=== PATIENT | female | born 1960 | race Caucasian/White ===

== ENCOUNTER → 2019-11-22 | Outpatient (CLI) | payer OTHER | END | disposition home or self-care (01) | LOC: LAB 14:02 | PROVIDERS: ATTEND Otolaryngology | DX: Z11.59 Encounter for screening for other viral diseases (principal) | CPT/HCPCS: U0003-CS ==

== ENCOUNTER → 2019-11-28 | Day surgery (SDC) | payer OTHER ==
[~2019-11-28] VITALS: Ht 162.6 cm; Wt 71.7 kg
[~2019-11-28] MED LIST: ACET325T21 PO; AZEL137S3 NS; CLINDAMYCIN 900MG PREMIX 50 ML IV PRN; DESFLURANE 61 TO 120 MINUTES IH ONE; DEXAMETHASONE SOD PHOS 4 MG/ML VIAL ONE; EPINEPHrine VIAL 30 MG/30 ML VIAL ONE; FLUT9.9S NS; HYDROmorphone 2 MG/ML VIAL IV PRN; IV RINGERS,LACTATED 1000ML 1,000 ML IV SCH; LIDOCAINE 1%/EPI 1:100,000 20 ML VIAL. ONE; LIDOCAINE 2% PF 5 ML VIAL. ONE; MIDAZOLAM HCL/PF 2 MG/2 ML VIAL. ONE; MORPHINE SULFATE 2 MG/ML VIAL. IV PRN; MUPIROCIN 2 % NASAL OINTMENT 22GM TUBE. ONE; MYCO500T PO; ONDANSETRON PF 4 MG/2 ML VIAL. IV PRN; ONDANSETRON PF 4 MG/2 ML VIAL. ONE; OXYC5TAB88 PO; OXYMETAZOLINE 0.05% NASAL SPRAY 30ML BOTTLE. NS ONE; PHENYLEPHRINE 0.25% NASAL SPRAY 15ML BOTTLE. NS ONE; PHENYLEPHRINE in 0.9% NACL PF 1 MG/10 ML SYRINGE. IV ONE; PROCHLORPERAZINE 10 MG/2 ML VIAL. IV PRN; PROPOFOL 10 MG/ML (20ML) VIAL. IV ONE; ROCURONIUM 50 MG/5 ML VIAL. ONE; SULF1TAB24 PO; TRIAMCINOLONE ACETONIDE 40 MG/ML VIAL. MC ONE; VITA1TAB31 PO; ceFAZolin SODIUM IV Push 1 GM VIAL. IVP PRN; fentaNYL PF VIAL 100 MCG/2 ML VIAL IV PRN; fentaNYL PF VIAL 100 MCG/2 ML VIAL ONE; oxyCODONE IR 5 MG TABLET ONE; oxyCODONE IR 5 MG TABLET PO ONE
--- NOTE | 2019-11-28 18:15 | PDOC4 ---
IMMEDIATE POST OP NOTE Date: Nov 28, 2019 Pre-Op Diagnosis chronic pansinusitis, chronic rhinitis, deviated septum, chronic eustachian tube dysfunction Post-Op Diagnosis Same as above Procedure Performed bilateral FESS under Image Guided Navigation (left luis bullosa resection, bilateral total ethmoidectomy, bilateral sphenoidotomy, bilateral frontal sinusotomy, bilateral medial maxillary antrostomy), bilateral inferior turbinate reduction, denervation of bilateral nasal cavity with cryotherapy (Clarifix) and bilateral eustachian tube dilation Surgeon Dr. Hoda James Rib Builder none Anesthesiologist Dr. Bojorquez Anesthesia Type: General Blood Loss 200 mL Specimens Obtained bilateral sinus contents Findings 1. Septal deviation to left. 2. Bilateral inferior turbinate hypertrophy 3. Severe inflammation and polypoid inflammation within all sinuses. Chronic thickening osteitic changes within sinuses 4. Inflammation surrounding eustachian tube orifice. 4. Frontal sinuses patent but narrow at end of the case. Complications none Operative Note see dictation. HODA JAMES MD Nov 28, 2019 18:15
[2019-11-28 19:17] VITALS: BP 151/69
--- NOTE | 2019-11-29 05:40 | OP ---
DATE OF SURGERY: 11/28/2019 PREOPERATIVE DIAGNOSES: Chronic pansinusitis, recurrent acute pansinusitis, deviated septum, chronic eustachian tube dysfunction, chronic rhinitis, bilateral inferior turbinate hypertrophy. POSTOPERATIVE DIAGNOSES: Chronic pansinusitis, recurrent acute pansinusitis, deviated septum, chronic eustachian tube dysfunction, chronic rhinitis, bilateral inferior turbinate hypertrophy. PROCEDURE PERFORMED: Septoplasty, bilateral inferior turbinate reduction, denervation of bilateral nasal cavity using cryotherapy, bilateral eustachian tube dysfunction, bilateral functional endoscopic sinus surgery under image guidance navigation to include left luis bullosa resection, bilateral medial maxillary antrostomy, bilateral total ethmoidectomy, bilateral sphenoidotomy, and bilateral frontal sinusotomy. SURGEON: Hoda James MD ANESTHESIA: General endotracheal anesthesia. INDICATIONS FOR SURGERY: The patient is a 59-year-old female who presented to the ENT clinic with chronic sinusitis which has been ongoing for many years that has been refractory to multiple management. The patient has chronic ear pressure and chronic nasal obstruction as well as chronic rhinitis. This has all been refractory to medical management. The decision was made the patient to undergo the above procedure. The risks, benefits, and alternatives of surgery were thoroughly discussed with the patient and informed consent was obtained. SPECIMEN: Bilateral sinus contents. INTRAOPERATIVE FINDINGS: 1. Septal deflection to the left limiting access to the left middle meatus and causing 70% obstruction of the nasal airway. 2. Bilateral inferior turbinate hypertrophy. 3. Inflammation of the eustachian tube orifice bilaterally. 4. Chronic polypoid inflammation, mucosal inflammation throughout along the operated sinuses with mucoid discharge present within the anterior ethmoid sinuses bilaterally. 5. Chronic osteolytic changes with thick osteolytic bone changes throughout the operated sinuses significantly limiting ability to perform surgery. 6. Severely narrowed frontal outflow tracts that are patent, but still severely narrowed even at the end of the case. ESTIMATED BLOOD LOSS: 200 mL. DESCRIPTION OF PROCEDURE: The patient was brought back to room per anesthesia and intubated in standard fashion. The patient was then turned 90 degrees in the room. The [employer] image guidance system was set up and verified for accuracy. This was used throughout the case to ensure complete dissection and for the patient's safety. The patient's nasal vestibular hairs were trimmed. The anterior septum and anterior aspect of the inferior turbinate was injected with a submucosal injection of 1% lidocaine with 1:100,000 epinephrine. Afrin-soaked pledgets were inserted in the patient's bilateral nasal cavity. The patient was then prepped and draped in a standard fashion. The Afrin-soaked pledgets were removed and a 30-degree scope was used to visualize the patient's bilateral nasal cavity. The patient was found to have a significant substance abuse on the left, which was limiting access to the nasopharynx. Therefore, septoplasty was performed on the left side. Hemitransfixion incision was made and elevated the mucoperichondrial flap on the left, cartilaginous and bony septum and left nasal floor. ____ anterior to the septal deflection to the left, leaving a 1.5 cm caudal and dorsal strut intact and elevated the mucoperichondrial flap on the right cartilaginous and bony septum right nasal floor. A silver knife was then used to remove the deviated portions of cartilage and sharp scissors were used superiorly on the nasal septal bone and the osteotome was used along the nasal floor and the deviated portions of bony septum including a large spur to the left completely resected. After this was completed, the septum was found to be straight. Left-sided hemitransfixion incision was closed with interrupted sutures of 4-0 chromic and a quilting mattress suture of 4-0 plain gut was used to bring the 2 mucoperichondrial flaps back together at the midline. There was a tear posteriorly and the mucoperichondrial flap on the left side, but no changes were found on the right side and this was reapproximated using the quilting mattress suture. I then used the 30-degree scope to visualize the patient's nasopharynx. The patient was found to have significant inflammation of the eustachian tube orifice bilaterally. Using the Histogenics low profile eustachian tube, ____ eustachian tube configuration. I then gently inserted the probe into the left eustachian tube orifice without leading any trauma to the 2 cm alfonso. I then placed the balloon over the probe and insufflated the balloon for 12 atmospheres of pressure for 2 minutes. The balloon was then subsequently deflated and the probe and the balloon removed without obvious trauma to the eustachian tube orifice, which was now widely patent. An identical procedure was performed on the right side. I then injected the lateral nasal wall with the attachment of the middle turbinate, lateral nasal wall, both anteriorly and posteriorly on each side. A 30-degree scope was used to visualize the posterior nasal cavity. The ClariFix cryotherapy device was inserted into the left nasal cavity. This device was placed adjacent to the mucosa just anterior to the posterior attachment of the middle turbinate and lateral nasal wall where the sphenopalatine ganglion entered into the nasal cavity. The device was placed along the mucosa and the device was turned on and the area of mucosa was frozen using the cryotherapy device for 45 seconds. The device was then turned off and the area was thawed ____ as well as normal saline irrigation. Once the device was completely thawed and it was gently removed without any trauma to the overlying mucosa. The mucosa was obviously blanched and that the identical procedure was performed on the right side. My attention was taken to performing the functional endoscopic sinus surgery on the left side. The patient had a large luis bullosa on this side. I used a sickle knife to cut it through the anterior aspect of the luis bullosa. I then used turbinate scissors to excise the lateral wall of the luis bullosa. The luis bullosa was further trimmed using the microdebrider. Using a backbiter forceps, I resected the most inferior portion of the vertical process. The vertical and horizontal process of the uncinate were then medialized and completely resected. The natural ostium of the maxillary sinus was identified. This was widened both anteriorly and posteriorly until it was widely patent. I then performed an ethmoidectomy in standard fashion beginning in the medial inferior plane, I dissected through the anterior ethmoid bulla. It is to be noted the patient had significant osteolytic changes within the ethmoid sinuses, and both of the bone of this region were severely indurated and hard to dissect. I continued my dissection through the anterior ethmoids. I performed an ethmoidectomy. Using a 0-degree scope, I visualized the patient's left nasal cavity. I again performed an ethmoidectomy in a standard fashion beginning in the medial inferior plane. I dissected through the anterior ethmoid bulla. It is to be noted that the patient had significant osteitic changes and very indurated bone throughout the ethmoid, frontal, and sphenoid sinuses on this side which made the dissection very difficult. There was also mucoid and polypoid inflammation throughout these sinuses. I dissected through the anterior ethmoid bulla using sharp dissection traveling from an anterior to posterior direction. Posteriorly, I identified the face of the sphenoid sinus. I dissected through the posterior aspect of the middle turbinate and then under image guidance as this was the only way I could visualize the patient's natural ostium of the sphenoid sinus, I used the straight probe to identify the sphenoid outflow tract and gently inserted this into the probe. I then placed a Alma balloon dilation system into the sphenoid ostium and I insufflated this multiple times to 12 atmospheres of pressure for 5 seconds to widen the sphenoid ostia. Once the sphenoid ostium was widened appropriately, I again used the microdebrider followed by Kerrison forceps to widen the sphenoid ostia superiorly to the skull base, laterally to the lamina papyracea, and inferiorly to remove the significant mucosal inflammation within the sphenoid sinus and to widen the sphenoid sinus completely. I then used a 30-degree scope to visualize the patient's skull base. The patient had thick osteitic changes of the ethmoid air cells along the skull base. These were carefully excised traveling from a posterior to the anterior direction. Anteriorly, I identified the frontal sinus outflow tract. This was severely narrowed due to the suprabullar ethmoid air cells as well as due to the posterior wall of the agger nasi cell. The posterior wall of the Agger nasi cell is very thickened, osteitic, and difficult to resect. I again placed the Florian balloon dilation ____ frontal outflow tract and this was insufflated to 12 atmospheres of pressure for 5 seconds multiple times to widen the frontal sinus outflow tract as widely and as patent as possible. I used the instrumentation at hand as much as I could to remove the posterior wall of the Agger nasi cell and the suprabullar ethmoid air cells, but there were limitations due to how thick and osteitic the bony changes were. Once the frontal sinus outflow tract was as wide as possible, I thoroughly irrigated all of her sinuses. Topical epinephrine was placed for several minutes for hemostasis. The middle turbinate was bulgerized to the septum using a sickle knife. A Propel contour implant was placed within the narrowed frontal sinus outflow tract and a Propel standard implant was placed within the posterior ethmoid sinuses. My attention was then taken to the right nasal cavity. I then medialized the middle turbinate using a Ellsworth elevator. I identified the uncinate process. Using a backbiter forceps, I resected the most inferior portion of the vertical process of the uncinate. The vertical and horizontal processes of the uncinate were medialized and completely resected using sharp dissection. The natural os of the maxillary sinus was identified. This was widened both anteriorly and posteriorly until it was widely patent. I then performed an ethmoidectomy in a standard fashion. Beginning in the medial inferior plane, I dissected through the anterior ethmoid bulla. Again, the patient was noted to have thick osteitic bone changes throughout the ethmoid, frontal, and sphenoid sinuses on this side. This was likely due to the patient's chronic infection. I carefully dissected using sharp dissection through the anterior ethmoid air cells from the anterior to posterior direction. Posteriorly, I identified the neck, the face of the sphenoid sinus and at this time, I dissected through the posterior aspect of the middle turbinate, identified the superior turbinate, identified under image guidance was supposed to be the sphenoid outflow tract. This was severely narrowed and osteitic changes. I again used the Histogenics balloon dilation system, placed the probe within the sphenoid sinuses and dilate the balloon to 12 atmospheres of pressure for 5 seconds to widen the natural ostia of the sphenoid sinus. I then under significant manipulation was able to further widen the frontal sinus outflow tract of the sphenoid ostia using Kerrison forceps superiorly to skull base and laterally to the lamina papyracea and inferiorly. There was severely thick and osteitic bone that made this very difficult; however, once I was able to obtain the sphenoid ostia being very widely patent. I then used a 30-degree scope to visualize the skull base. Again, there was significant polypoid inflammation throughout the ethmoid air cells along the skull base. Traveling from a posterior to anterior direction, I removed all the ethmoid air cells off the skull base. Anteriorly, I identified the frontal sinus outflow tract. This was again severely narrowed due to the suprabullar ethmoid air cells as well as ethmoid air cells extending into the frontal outflow tract. Using the Florian balloon, I was able to dilate the frontal sinus outflow tract multiple times. I then was able to remove the suprabullar ethmoid air cell as much as possible to widen the frontal sinus outflow tract. Once ____ at the end of the case, but it was much more improved when compared to previously and I did have to irrigate the frontal sinus outflow tract without difficulty. All of the operated sinuses were then thoroughly irrigated. Topical epinephrine was placed for several minutes for hemostasis. A Propel contour implant was placed within the frontal sinus outflow tract. The middle turbinate was bulgerized to the septum. A Propel standard implant was placed within the posterior ethmoid sinuses. I then performed bilateral inferior turbinate reduction. Beginning on the right side, I used the microdebrider to cut into the anterior aspect of the inferior turbinate. I then resected the excess mucosa along the entire length of the inferior ____ along its lateral and inferior border, also resecting the posterior mulberry tissue. A Ellsworth elevator was used to elevate the residual mucosa at the most inferior portion of the turbinate bone. Andre-Cut forceps were used to resect the most inferior portion of the turbinate bone. The residual mucosa was then trimmed and redraped turbinate bone. The residual turbinate bone was outfractured. Suction Bovie electrocautery was used posteriorly along the cut of the mucosa of the inferior turbinate along its entire length for postoperative hemostasis. The middle turbinate was then outfractured and the nasal cavity was very widely patent. An identical procedure was performed on the left side. A piece of silicone sheeting was then cut to size. The sheet was placed along the anterior septum and between the middle turbinate and lateral nasal wall bilaterally. This was sutured to the anterior septum using 3-0 Prolene suture. The patient was then turned back over to anesthesia and extubated without complication. Our sponge, needle, and instrument counts were correct at the end of the case. COMPLICATIONS: None. DISPOSITION: Stable and transferred to the recovery room. HODA JAMES MD DR: ZENON/stephanie JOB#: [id number] / [id number]
--- NOTE | 2019-12-03 13:08 | PATHOLOGY ---
[facility] Accession Number: [id number] . 01 Material submitted: . sinus, frontal - BILATERAL SINUS CONTENTS. Modifiers: bilateral . 02 Diagnosis: Bone and soft tissue, "bilateral sinus contents", excisional - Upper respiratory tract type mucosa with acute and chronic inflammation and edema; negative for malignancy. - Unremarkable fragments of bony trabeculae. . (MLK:orestes; 12/02/2019) MBR 12/03/2019 1249 Local . 02 Electronically signed: . Alysa Joseph MD, Pathologist NPI- [id number] . 01 Gross description: . The specimen is received in formalin, labeled "Ellison, Ria, bilateral sinus contents" and consists of a fragment of pink-quiros tissue admixed with minute fragments of possible bone and cartilage measuring 2.1 x 1.1 x 0.3 cm in aggregate which are entirely submitted in A1 following light decalcification. (JM; 11/29/2019) JFQ/JFQ 11/29/2019 1820 Local . 02 Pathologist provided ICD-10: J01.90, J32.9 . 02 CPT . 193633, 014334 Specimen Comment: A courtesy copy of this report has been sent to [phone], [phone] Specimen Comment: [id number] Specimen Comment: Report sent to / DR LACKEY Performed at: 01 [facility] [address], [place] [id number] MD Christian Cuevas MD Phone: [phone] Performed at: 02 [facility] [address] [id number] MD Galen Mark MD Phone: [phone]
== END ==
LOC: SURG 12:22 → EDUNIT# 14:00
PROVIDERS: ATTEND Otolaryngology
DX: J32.9 Chronic sinusitis, unspecified (principal); J31.0 Chronic rhinitis; J32.4 Chronic pansinusitis; J34.2 Deviated nasal septum; H69.93 Unspecified Eustachian tube disorder, bilateral; J34.3 Hypertrophy of nasal turbinates; Z79.899 Other long term (current) drug therapy
CPT/HCPCS: 30140; 30520; 31240; 31253; 31256; 31257; 82962; J0171; J1100; J2250; J2370; J2405; J2704; J3010; J3490; A4215; A7015; C1713; J3301; J7120